=== PATIENT | female | born 1955 | race American Indian/Alaskan Native ===

== ENCOUNTER 2019-04-16 23:01 | Inpatient (IN) | payer MEDICARE ==
[2019-04-16] MEDS ORDERED: ASPIRIN 325 MG TAB PO ONE (23:40)
--- NOTE | 2019-04-17 00:35 | Emergency Department Report ---
ED Chest Pain HPI - General Chief Complaint: Chest Pain Stated Complaint: HEADACHE, CHEST PAIN Time Seen by Provider: 04/16/19 23:17 Source: patient Mode of arrival: Ambulatory Limitations: No Limitations - History of Present Illness Initial Comments: 63-year-old female with a past medical history of hypertension, diabetes, end- stage renal disease on dialysis Friday, Friday, and Friday, and a "slight heart attack" in November 2018 presents to the hospital complaints of headache and chest pain that started towards the end of her dialysis today. Patient states she initially had a headache, requested Tylenol, by the time she was provided Tylenol the pain had moved to her mid chest. She described as a dull pain that is intermittent and lasted for approximately 1 minute at a time. Positive associated shortness of breath and pain with increased inspiration. She denies nausea, vomiting, or diaphoresis. Patient registered here earlier under and however her chart was closed due to "no response." Patient states she never left the department and was the registered under a different medical record number when she inquired about her wait. Patient reports she was admitted at [facility] in November 2018 and diagnosed with a slight heart attack but denies receiving cardiac cath, angioplasty, or stent. She has also not been prescribed aspirin, Plavix, or other anticoagulants. She denies history of PE/DVT, recent travel, calf tenderness, or unilateral leg edema. She follows with [facility] as an outpatient. - Related Data Allergies Allergy/AdvReac Type Severity Reaction Status Date / Time No Known Allergies Allergy Verified 03/09/19 10:11 Heart Score - HEART Score History: Slightly suspicious EKG: Non-specific Age: 45-65 Risk factors: > 3 risk factors or hx of atherosclerotic disease Troponin: 1-3x normal limit HEART Score: 5 ED Review of Systems ROS: Stated complaint: HEADACHE, CHEST PAIN Other details as noted in HPI Comment: All other systems reviewed and negative ED Past Medical Hx - Past Medical History Previous Medical History?: Yes Hx Hypertension: Yes Hx Heart Attack/AMI: Yes ([SLIGHT WI] 2018) Hx Diabetes: Yes (DIET CONTROLLED) Hx Tuberculosis: No Hx HIV: No - Surgical History Past Surgical History?: Yes Additional Surgical History: C-Sec X 3 - Social History Smoking Status: Former Smoker Substance Use Type: None ED Physical Exam - General Limitations: No Limitations - Other Other exam information: General: No limitations, patient is alert in no acute distress Head exam: Atraumatic, normocephalic Eyes exam: Normal appearance, pupils equal reactive to light, extraocular movements intact ENT: Moist mucous membrane, normal oropharynx Neck exam: Normal inspection, full range of motion, no meningismus nontender Respiratory exam: Clear to auscultation bilateral, no wheezes, rales, crackles, external nontender, tenderness to left sided chest wall. Right chest wall dialysis access Cardiovascular: Normal rate and rhythm Abdomen: Soft, nondistended, and nontender, with normal bowel sounds, no rebound, or guarding Extremity: Full range of motion normal inspection no deformity, no calf tenderness or edema Back: Normal Inspection, full range of motion, no tenderness Neurologic: Alert, oriented x3, cranial nerves intact, no motor or sensory deficit Psychiatric: normal affect, normal mood Skin: Warm, dry, intact ED Course Vital Signs 04/16/19 04/16/19 04/16/19 23:08 23:25 23:45 Temperature 98.4 F 98.3 F Pulse Rate 75 75 74 Respiratory 16 12 12 Rate Blood Pressure 189/72 169/91 Blood Pressure 219/93 [Left] O2 Sat by Pulse 99 99 99 Oximetry 04/16/19 04/17/19 04/17/19 23:55 00:57 01:30 Temperature Pulse Rate 75 74 70 Respiratory 14 12 16 Rate Blood Pressure 169/91 183/83 Blood Pressure 188/83 [Left] O2 Sat by Pulse 98 99 94 Oximetry 04/17/19 04/17/19 02:01 02:31 Temperature Pulse Rate 72 77 Respiratory 16 14 Rate Blood Pressure 175/65 183/51 Blood Pressure [Left] O2 Sat by Pulse Oximetry FROILAN score - Froilan Score Age > 65: (0) No Aspirin use within the Past 7 Days: (0) No 3 or more CAD Risk Factors: (1) Yes 2 or more Angina events in past 24 hrs: (1) Yes Known CAD with more than 50% Stenosis: (0) No Elevated Cardiac Markers: (0) No ST Deviation Greater than 0.5mm: (0) No FROILAN Score: 2 ED Medical Decision Making - Lab Data Lab Results 04/17/19 Range/Units 00:05 Troponin T 0.158 H* (0.00-0.029) ng/mL Triglycerides 72 (2-149) mg/dL Cholesterol 213 H (50-199) mg/dL LDL Cholesterol Direct 154 H (50-130) mg/dL HDL Cholesterol 54 (40-59) mg/dL Cholesterol/HDL Ratio 3.94 % - EKG Data -: EKG Interpreted by Me EKG shows normal: sinus rhythm, ST-T waves (lateral and inferior T-wave inversions) Rate: normal - EKG Data 04/17/19 repeat ekg in ed no acute changes - Radiology Data cxr: no acute findings on cxr earlier today - Medical Decision Making She has intermittent sternal chest pain. Troponin elevated secondary to renal insufficiency and unchanged upon repeat. EKG shows T-wave inversions with all the previous record for comparison. Patient sees [facility] as outpatient. Will be admitted for further workup pt tx with asa - Differential Diagnosis mi, pe, unstable angina, atypical cp Critical Care Time: No Critical care attestation.: If time is entered above; I have spent that time in minutes in the direct care of this critically ill patient, excluding procedure time. ED Disposition Clinical Impression: Chest pain, ESRD on dialysis Disposition: OP ADMIT IP TO THIS HOSP Is pt being admited?: Yes Does the pt Need Aspirin: Yes Condition: Stable Time of Disposition: 01:53
[2019-04-17 01:21] LABS: Chol/HDL Ratio 3.94 %
--- NOTE | 2019-04-17 02:08 | History and Physical Report ---
History of Present Illness Date of examination: 04/17/19 Date of admission: 04/17/19 Chief complaint: Chest pain History of present illness: Patient is 63-year-old female with a past medical history of hypertension, DMII, ESRD(MWF dialysis), who presents to ER with complaints of headache and chest pain. Patient states that she had just recently finished dialysis, when she had a sudden, sharp left chest pain that radiates to left shoulder and back of head. Patient states she usually seeks care at [facility], and was recently there February 2019 seen and admitted for a heart attack. She was transported to ER via EMS. She denies nausea, vomiting, or diaphoresis. Past History Past Medical History: other (Listed in HPI) Past Surgical History: Social history: smoking Family history: hypertension Medications and Allergies Allergies Allergy/AdvReac Type Severity Reaction Status Date / Time ampicillin Allergy Shortness Verified 04/17/19 05:46 of Breath codeine AdvReac Shortness Verified 04/17/19 05:46 of Breath Review of Systems All systems: negative Cardiovascular: chest pain Neurological: headaches Exam - Physical Exam Narrative exam: General appearance: Present: no acute distress - EENT Eyes: Present: PERRL ENT: hearing intact, clear oral mucosa - Neck Neck: Present: supple, normal ROM - Respiratory Respiratory effort: normal Respiratory: bilateral: CTA - Cardiovascular Heart Sounds: Present: S1 & S2. Absent: rub, click - Extremities Extremities: pulses symmetrical, No edema Peripheral Pulses: within normal limits - Abdominal General gastrointestinal: Present: soft, non-tender, non-distended, normal bowel sounds Female genitourinary: Present: normal - Integumentary Integumentary: Present: clear, warm, dry - Musculoskeletal Musculoskeletal: gait normal, strength equal bilaterally - Psychiatric Psychiatric: appropriate mood/affect, intact judgment & insight - Neurologic Neurologic: CNII-XII intact, moves all extremities - Constitutional Vitals: Temp Pulse Resp BP Pulse Ox 98.3 F 74 12 188/83 99 04/16/19 23:25 04/17/19 00:57 04/17/19 00:57 04/17/19 00:57 04/17/19 00:57 Results - Labs Labs: Laboratory Last Values Troponin T 0.158 ng/mL (0.00-0.029) H* 04/17/19 00:05 Triglycerides 72 mg/dL (2-149) 04/17/19 00:05 Cholesterol 213 mg/dL (50-199) H 04/17/19 00:05 LDL Cholesterol Direct 154 mg/dL (50-130) H 04/17/19 00:05 HDL Cholesterol 54 mg/dL (40-59) 04/17/19 00:05 Cholesterol/HDL Ratio 3.94 % 04/17/19 00:05 - Imaging and Cardiology EKG: report reviewed (sinus rhythm, ST-T waves (lateral and inferior T-wave inversions)) Chest x-ray: report reviewed (no acute finding) Assessment and Plan Assessment and plan: The patient has been seen in conjunction with Dr. Silverio who agrees with the assessment and plan of care. Atypical Chest Pain -Continuous telemetry monitoring -Continue supportive care -Pain mgmt -Troponin elevated x1, will continue to trend -Cardiology consulted End-stage renal disease; -on hemodialysis MWF -Received HD yesterday -Monitor labs HTN -Monitor BP -Resume meds once reconciled -IV hydralazine prn Hx HLD -On statin -Lipid panel pending DVT PPX -SCDs bilateral -Heparin sub-q VTE prophylaxis?: Chemical
[2019-04-17] MEDS ORDERED: MORPHINE 2 MG/1 ML INJ IV PRN (02:10)
[2019-04-17] MEDS ORDERED: ACETAMINOPHEN 325 MG TAB PO PRN (02:10)
[2019-04-17] MEDS ORDERED: ONDANSETRON 4 MG/2 ML INJ IV PRN (02:10)
[2019-04-17] MEDS ORDERED: hydrALAZINE 20 MG/1 ML INJ IV PRN (02:18)
[2019-04-17] MEDS ORDERED: D5W/0.9% NACL 1,000 ML IV SCH (10:00)
[2019-04-17] MEDS ORDERED: ASPIRIN 325 MG TAB PO SCH (10:00)
--- NOTE | 2019-04-17 10:03 | Progress Note ---
Assessment and Plan Assessment and plan: Chest pain: Headache: Resolved Hospitalist Physical - Constitutional Vitals: Temp Pulse Resp BP Pulse Ox 98.5 F 79 18 179/76 97 04/17/19 05:48 04/17/19 06:05 04/17/19 06:56 04/17/19 05:48 04/17/19 05:48 Results - Labs Labs: Laboratory Last Values POC Glucose 76 (70-105) 04/17/19 09:19 Troponin T 0.145 ng/mL (0.00-0.029) H* 04/17/19 05:19 Triglycerides 72 mg/dL (2-149) 04/17/19 00:05 Cholesterol 213 mg/dL (50-199) H 04/17/19 00:05 LDL Cholesterol Direct 154 mg/dL (50-130) H 04/17/19 00:05 HDL Cholesterol 54 mg/dL (40-59) 04/17/19 00:05 Cholesterol/HDL Ratio 3.94 % 04/17/19 00:05 Active Medications - Current Medications Current Medications: Generic Name Dose Route Start Last Admin Trade Name Freq PRN Reason Stop Dose Admin Acetaminophen 650 mg 04/17/19 02:10 Tylenol PO Q4H PRN Pain MILD(1-3)/Fever >100.5/VALENTINO Aspirin 325 mg 04/17/19 10:00 Ecotrin PO QDAY [facility] Folic Acid 1 mg 04/17/19 10:00 Folvite PO QDAY [facility] Heparin Sodium (Porcine) 5,000 unit 04/17/19 10:00 Heparin SUB-Q Q12HR [facility] Hydralazine HCl 10 mg 04/17/19 02:18 Apresoline IV Q4H PRN Hypertension Hydralazine HCl 50 mg 04/17/19 14:00 Apresoline PO Q8HR JANE Dextrose/Sodium Chloride 1,000 mls @ 42 mls/hr 04/17/19 10:00 D5ns IV DIRECT [facility] Isosorbide Mononitrate 60 mg 04/17/19 10:00 Imdur PO QDAY [facility] Metoprolol Tartrate 50 mg 04/17/19 10:00 Metoprolol PO BID JANE Morphine Sulfate 2 mg 04/17/19 02:10 Morphine IV Q4H PRN Pain, Moderate (4-6) Ondansetron HCl 4 mg 04/17/19 02:10 Zofran IV Q8H PRN Nausea And Vomiting Sodium Chloride 10 ml 04/17/19 10:00 Sodium Chloride Flush Syringe 10 Ml IV BID JANE Sodium Chloride 10 ml 04/17/19 02:10 Sodium Chloride Flush Syringe 10 Ml IV PRN PRN LINE FLUSH
[2019-04-17] MEDS: METOPROLOL TARTRATE 50 MG TAB PO SCH ×2 (10:25→21:08)
[2019-04-17] MEDS: FOLIC ACID 1 MG TAB PO SCH (10:25)
[2019-04-17] MEDS: ASPIRIN EC 325 MG TAB PO SCH (10:25)
[2019-04-17] MEDS: HEPARIN 5,000 UNIT/1 ML VIAL SUB-Q SCH ×2 (10:25→21:08)
[2019-04-17 10:57] LABS: Hematocrit 37.8 % (30.3-42.9); Hemoglobin 12.5 gm/dl (10.1-14.3); Mean Corpuscular HGB Conc 33 % (30-34); Mean Corpuscular Volume 85 fl (79-97); Platelet Count 350 K/mm3 (140-440); Red Blood Count 4.43 M/mm3 (3.65-5.03); Red Cell Distribution Width 18.2 % (13.2-15.2)
[2019-04-17 11:02] LABS: Calcium 8.7 mg/dL (8.4-10.2)
[2019-04-17 11:44] LABS: Basophils % (Manual) 0 % (0.0-1.8); Eosinophils % (Manual) 0 % (0.0-4.3); Total Cells Counted 100
[2019-04-17 11:45] LABS: Target Cells Few
[2019-04-17 11:46] LABS: Hypochromasia Few; Platelet Estimate Consistent w Auto
--- NOTE | 2019-04-17 13:20 | Consultation ---
History of Present Illness Consult date: 04/17/19 Requesting physician: ALONDRA SEGAL Consult reason: chest pain History of present illness: 63-year-old female with history of end-stage renal disease on hemodialysis hypertension multiple admissions at [place] for sepsis and chest pain. He presents back with left-sided chest pressure radiating with and without exertio n. Had abnormal troponin. Had a negative stress test and October 2018. Patient is not very compliant with medications as per her primary care note. Denies any fever or chill or syncope. Past History Past Medical History: ESRD, hypertension, hyperlipidemia, other (Listed in HPI) Past Surgical History: Social history: smoking Family history: hypertension Medications and Allergies Allergies Allergy/AdvReac Type Severity Reaction Status Date / Time ampicillin Allergy Shortness Verified 04/17/19 05:46 of Breath codeine AdvReac Shortness Verified 04/17/19 05:46 of Breath Active Meds: Active Medications Acetaminophen (Tylenol) 650 mg PO Q4H PRN PRN Reason: Pain MILD(1-3)/Fever >100.5/VALENTINO Aspirin (Ecotrin) 325 mg PO QDAY [facility] Last Admin: 04/17/19 10:25 Dose: 325 mg Documented by: Folic Acid (Folvite) 1 mg PO QDAY [facility] Last Admin: 04/17/19 10:25 Dose: 1 mg Documented by: Heparin Sodium (Porcine) (Heparin) 5,000 unit SUB-Q Q12HR [facility] Last Admin: 04/17/19 10:25 Dose: 5,000 unit Documented by: Hydralazine HCl (Apresoline) 10 mg IV Q4H PRN PRN Reason: Hypertension Hydralazine HCl (Apresoline) 50 mg PO Q8HR [facility] Dextrose/Sodium Chloride (D5ns) 1,000 mls @ 42 mls/hr IV DIRECT [facility] Last Admin: 04/17/19 10:24 Dose: 42 mls/hr Documented by: Isosorbide Mononitrate (Imdur) 60 mg PO QDAY [facility] Last Admin: 04/17/19 10:25 Dose: 60 mg Documented by: Metoprolol Tartrate (Metoprolol) 50 mg PO BID [facility] Last Admin: 04/17/19 10:25 Dose: 50 mg Documented by: Morphine Sulfate (Morphine) 2 mg IV Q4H PRN PRN Reason: Pain, Moderate (4-6) Ondansetron HCl (Zofran) 4 mg IV Q8H PRN PRN Reason: Nausea And Vomiting Sodium Chloride (Sodium Chloride Flush Syringe 10 Ml) 10 ml IV BID JANE Last Admin: 04/17/19 10:25 Dose: 10 ml Documented by: Sodium Chloride (Sodium Chloride Flush Syringe 10 Ml) 10 ml IV PRN PRN PRN Reason: LINE FLUSH Review of Systems All systems: negative (as per the HPI) Physical Examination Vital Signs Temp Pulse Resp BP Pulse Ox 98.4 F 75 16 189/72 99 04/16/19 23:08 04/16/19 23:08 04/16/19 23:08 04/16/19 23:08 04/16/19 23:08 General appearance: no acute distress, well-nourished HEENT: Positive: PERRL, Mucus Membranes Moist Neck: Positive: neck supple, trachea midline Cardiac: Positive: Reg Rate and Rhythm, S1/S2. Negative: Audible Murmur Lungs: Positive: clear to auscultation, Normal Breath Sounds Neuro: Positive: Grossly Intact Abdomen: Positive: Soft, Active Bowel Sounds. Negative: Tender, Distended Female genitourinary: deferred Skin: Positive: Clear Incision: Cardiac Cath Site Musculoskeletal: No Pain, Normal Range of Motion Extremities: Present: normal. Absent: edema Results 04/17/19 10:26 04/17/19 10:26 Lipids 04/17/19 Range/Units 00:05 Triglycerides 72 (2-149) mg/dL Cholesterol 213 H (50-199) mg/dL HDL Cholesterol 54 (40-59) mg/dL Cholesterol/HDL Ratio 3.94 % CBC 04/17/19 Range/Units 10:26 WBC 10.8 (4.5-11.0) K/mm3 RBC 4.43 (3.65-5.03) M/mm3 Hgb 12.5 (10.1-14.3) gm/dl Hct 37.8 (30.3-42.9) % Plt Count 350 (140-440) K/mm3 Comprehensive Metabolic Panel 04/17/19 Range/Units 10:26 Sodium 140 (137-145) mmol/L Potassium 4.1 (3.6-5.0) mmol/L Chloride 95.8 L (98-107) mmol/L Carbon Dioxide 27 (22-30) mmol/L BUN 21 H (7-17) mg/dL Creatinine 3.7 H (0.7-1.2) mg/dL Glucose 87 (65-100) mg/dL Calcium 8.7 (8.4-10.2) mg/dL - Imaging and Cardiology Stress echo: other (10/2018 negative myocardial perfusion no significant ischemia) Echo: report reviewed (01/2019 normal LV function moderate lvh mild mitral regurgitation mild tricuspid regurgitation normal RVSP) EKG interpretations - Telemetry EKG Rhythm: Sinus Rhythm (normal sinus rhythm nonspecific ST-T is) Assessment and Plan Chest pain Non-ST elevation ID type II Hypertensive urgency Diabetes endStage renal disease on hemodialysis Hyperlipidemia Compliance issues Recommend cardiac catheterization for definitive diagnosis in view of recurrent chest pain suspected coronary Disease. Patient needs to blood pressure control will add nitrates and beta blockers
[2019-04-17] MEDS: hydrALAZINE 25 MG TAB PO SCH ×2 (15:20→21:08)
[2019-04-17] MEDS: CALCITRIOL 0.25 MCG CAP PO SCH (15:20)
--- NOTE | 2019-04-17 16:12 | Event Note ---
Date: 04/17/19 Patient seen and examined, resting comfortable. Will restart home meds, Discussed case with cardiology, nurse and patient. Continue current therapy
[2019-04-18] MEDS: hydrALAZINE 25 MG TAB PO SCH ×3 (05:10→22:42)
[2019-04-18 07:28] LABS: Basophils # (Auto) 0.1 K/mm3 (0.0-0.1); Basophils % (Auto) 1.1 % (0.0-1.8); Eosinophils # (Auto) 0.1 K/mm3 (0.0-0.4); Eosinophils % (Auto) 1.2 % (0.0-4.3); Hematocrit 34.3 % (30.3-42.9); Hemoglobin 11.4 gm/dl (10.1-14.3); Lymphocytes # (Auto) 2.2 K/mm3 (1.2-5.4); Lymphocytes % (Auto) 22.1 % (13.4-35.0); Mean Corpuscular HGB Conc 33 % (30-34); Mean Corpuscular Volume 86 fl (79-97); Monocytes # (Auto) 0.9 K/mm3 (0.0-0.8); Monocytes % (Auto) 8.6 % (0.0-7.3); Platelet Count 324 K/mm3 (140-440); Red Blood Count 3.97 M/mm3 (3.65-5.03); Red Cell Distribution Width 18.2 % (13.2-15.2)
[2019-04-18 07:47] LABS: Calcium 8.3 mg/dL (8.4-10.2)
--- NOTE | 2019-04-18 09:46 | Progress Note ---
Assessment and Plan Assessment and plan: Patient is 63-year-old female with a past medical history of hypertension, DMII, ESRD(MWF dialysis), who presents to ER with complaints of headache and chest pain. Patient states that she had just recently finished dialysis, when she had a sudden, sharp left chest pain that radiates to left shoulder and back of head. Patient states she usually seeks care at [facility], and was recently there February 2019 seen and admitted for a heart attack. She was transported to ER via EMS. She denies nausea, vomiting, or diaphoresis. Nstemi Type 2 Hypertensive Urgency Atypical chest pain DM ESRD HLD Plan Continue supportive care BP still elevated, but has not received morning meds. Will also resume home dose Nifidepine 60mg daily and recheck BP may need further adjustment 30 mins of counselling provided Discussed plan for cardiac catheterization for definitive diagnosis in view of recurrent chest pain suspected coronary Disease in am considering multiple work up in the past. Nephrology input noted DVT/GI prophy History Interval history: Patient seen and examined, stable, no acute distress Hospitalist Physical - Physical exam Narrative exam: VITAL SIGNS: Reviewed. GENERAL: The patient appears normally developed, Vital signs as documented. HEAD: No signs of head trauma. EYES: Pupils are equal. Extraocular motions intact. EARS: Hearing grossly intact. MOUTH: Oropharynx is normal. NECK: No adenopathy, no JVD. CHEST: Chest with clear breath sounds bilaterally. No wheezes, rales, or rhonchi. CARDIAC: Regular rate and rhythm. S1 and S2, without murmurs, gallops, or rubs. VASCULAR: Right arm dialysis access. No Edema. Peripheral pulses normal and equal in all extremities. ABDOMEN: Soft, non tender and non distended. No rebound or guarding, and no masses palpated. Bowel Sounds normal. MUSCULOSKELETAL: Good range of motion of all major joints. Extremities without clubbing, cyanosis or edema. NEUROLOGIC EXAM: Alert and oriented x 3 No focal sensory or strength deficits. Speech normal. Follows commands. PSYCHIATRIC: Mood normal. SKIN: detial exam as documented in skin assessment - Constitutional Vitals: Temp Pulse Resp BP Pulse Ox 99.1 F 66 18 174/73 93 04/18/19 09:09 04/18/19 09:09 04/18/19 09:09 04/18/19 09:09 04/18/19 09:09 General appearance: Present: no acute distress, well-nourished Results - Labs CBC & Chem 7: 04/18/19 13:14 04/18/19 13:14 Labs: Laboratory Last Values WBC 9.9 K/mm3 (4.5-11.0) 04/18/19 07:06 RBC 3.97 M/mm3 (3.65-5.03) 04/18/19 07:06 Hgb 11.4 gm/dl (10.1-14.3) 04/18/19 07:06 Hct 34.3 % (30.3-42.9) 04/18/19 07:06 MCV 86 fl (79-97) 04/18/19 07:06 MCH 29 pg (28-32) 04/18/19 07:06 MCHC 33 % (30-34) 04/18/19 07:06 RDW 18.2 % (13.2-15.2) H 04/18/19 07:06 Plt Count 324 K/mm3 (140-440) 04/18/19 07:06 Lymph % (Auto) 22.1 % (13.4-35.0) 04/18/19 07:06 Lipscomb % (Auto) 8.6 % (0.0-7.3) H 04/18/19 07:06 Eos % (Auto) 1.2 % (0.0-4.3) 04/18/19 07:06 Baso % (Auto) 1.1 % (0.0-1.8) 04/18/19 07:06 Lymph # 2.2 K/mm3 (1.2-5.4) 04/18/19 07:06 [place]comb # 0.9 K/mm3 (0.0-0.8) H 04/18/19 07:06 Eos # 0.1 K/mm3 (0.0-0.4) 04/18/19 07:06 Baso # 0.1 K/mm3 (0.0-0.1) 04/18/19 07:06 Add Manual Diff Complete 04/17/19 10:26 Total Counted 100 04/17/19 10:26 Seg Neutrophils % 67.0 % (40.0-70.0) 04/18/19 07:06 Seg Neuts % (Manual) 82.0 % (40.0-70.0) H 04/17/19 10:26 Band Neutrophils % 0 % 04/17/19 10:26 Lymphocytes % (Manual) 11.0 % (13.4-35.0) L 04/17/19 10:26 Reactive Lymphs % (Man) 0 % 04/17/19 10:26 Monocytes % (Manual) 6.0 % (0.0-7.3) 04/17/19 10:26 Eosinophils % (Manual) 0 % (0.0-4.3) 04/17/19 10:26 Basophils % (Manual) 0 % (0.0-1.8) 04/17/19 10: Metamyelocytes % 1.0 % 04/17/19 10: Myelocytes % 0 % 04/17/19 10: Promyelocytes % 0 % 04/17/19 10: Blast Cells % 0 % 04/17/19 10: Nucleated RBC % Not Reportable 04/17/19 10:26 Seg Neutrophils # 6.7 K/mm3 (1.8-7.7) 04/18/19 07:06 Seg Neutrophils # Man 8.9 K/mm3 (1.8-7.7) H 04/17/19 10:26 Band Neutrophils # 0.0 K/mm3 04/17/19 10: Lymphocytes # (Manual) 1.2 K/mm3 (1.2-5.4) 04/17/19 10:26 Abs React Lymphs (Man) 0.0 K/mm3 04/17/19 10:26 Monocytes # (Manual) 0.6 K/mm3 (0.0-0.8) 04/17/19 10:26 Eosinophils # (Manual) 0.0 K/mm3 (0.0-0.4) 04/17/19 10:26 Basophils # (Manual) 0.0 K/mm3 (0.0-0.1) 04/17/19 10:26 Metamyelocytes # 0.1 K/mm3 04/17/19 10:26 Myelocytes # 0.0 K/mm3 04/17/19 10:26 Promyelocytes # 0.0 K/mm3 04/17/19 10:26 Blast Cells # 0.0 K/mm3 04/17/19 10:26 WBC Morphology Not Reportable 04/17/19 10:26 Hypersegmented Neuts Not Reportable 04/17/19 10:26 Hyposegmented Neuts Not Reportable 04/17/19 10:26 Hypogranular Neuts Not Reportable 04/17/19 10:26 Smudge Cells Not Reportable 04/17/19 10:26 Toxic Granulation Not Reportable 04/17/19 10:26 Toxic Vacuolation Not Reportable 04/17/19 10:26 Dohle Bodies Not Reportable 04/17/19 10:26 Pelger-Huet Anomaly Not Reportable 04/17/19 10:26 Leonora Rods Not Reportable 04/17/19 10:26 Platelet Estimate Consistent w auto 04/17/19 10:26 Clumped Platelets Not Reportable 04/17/19 10:26 Plt Clumps, EDTA Not Reportable 04/17/19 10:26 Large Platelets Not Reportable 04/17/19 10:26 Giant Platelets Not Reportable 04/17/19 10:26 Platelet Satelliting Not Reportable 04/17/19 10:26 Plt Morphology Comment Not Reportable 04/17/19 10:26 RBC Morphology Not Reportable 04/17/19 10:26 Dimorphic RBCs Not Reportable 04/17/19 10:26 Polychromasia Not Reportable 04/17/19 10:26 Hypochromasia Few 04/17/19 10:26 Poikilocytosis Not Reportable 04/17/19 10:26 Anisocytosis Not Reportable 04/17/19 10:26 Microcytosis Not Reportable 04/17/19 10:26 Macrocytosis Not Reportable 04/17/19 10:26 Spherocytes Not Reportable 04/17/19 10:26 Pappenheimer Bodies Not Reportable 04/17/19 10:26 Sickle Cells Not Reportable 04/17/19 10:26 Target Cells Few 04/17/19 10:26 Tear Drop Cells Not Reportable 04/17/19 10:26 Ovalocytes Not Reportable 04/17/19 10:26 Helmet Cells Not Reportable 04/17/19 10:26 Kellogg-Texanna Bodies Not Reportable 04/17/19 10:26 Burdine Rings Not Reportable 04/17/19 10:26 Alejandro Cells Not Reportable 04/17/19 10:26 Bite Cells Not Reportable 04/17/19 10:26 Crenated Cell Not Reportable 04/17/19 10:26 Elliptocytes Not Reportable 04/17/19 10:26 Acanthocytes (Spur) Not Reportable 04/17/19 10:26 Rouleaux Not Reportable 04/17/19 10:26 Hemoglobin C Crystals Not Reportable 04/17/19 10:26 Schistocytes Not Reportable 04/17/19 10:26 Malaria parasites Not Reportable 04/17/19 10:26 Chon Bodies Not Reportable 04/17/19 10:26 Hem Pathologist Commnt No 04/17/19 10:26 Sodium 137 mmol/L (137-145) 04/18/19 07:06 Potassium 3.9 mmol/L (3.6-5.0) 04/18/19 07:06 Chloride 96.1 mmol/L (98-107) L 04/18/19 07:06 Carbon Dioxide 23 mmol/L (22-30) 04/18/19 07:06 Anion Gap 22 mmol/L 04/18/19 07:06 BUN 30 mg/dL (7-17) H 04/18/19 07:06 Creatinine 4.9 mg/dL (0.7-1.2) H 04/18/19 07:06 Estimated GFR 9 ml/min 04/18/19 07:06 BUN/Creatinine Ratio 6 % 04/18/19 07:06 Glucose 82 mg/dL (65-100) 04/18/19 07:06 POC Glucose 72 (70-105) 04/18/19 08:02 Calcium 8.3 mg/dL (8.4-10.2) L 04/18/19 07:06 Troponin T 0.139 ng/mL (0.00-0.029) H* 04/17/19 11:05 Triglycerides 72 mg/dL (2-149) 04/17/19 00:05 Cholesterol 213 mg/dL (50-199) H 04/17/19 00:05 LDL Cholesterol Direct 154 mg/dL (50-130) H 04/17/19 00:05 HDL Cholesterol 54 mg/dL (40-59) 04/17/19 00:05 Cholesterol/HDL Ratio 3.94 % 04/17/19 00:05 Active Medications - Current Medications Current Medications: Generic Name Dose Route Start Last Admin Trade Name Freq PRN Reason Stop Dose Admin Acetaminophen 650 mg 04/17/19 02:10 Tylenol PO Q4H PRN Pain MILD(1-3)/Fever >100.5/VALENTINO Aspirin 325 mg 04/17/19 10:00 04/17/19 10:25 Ecotrin PO 325 mg QDAY JANE Administration Calcitriol 0.25 mcg 04/17/19 14:00 04/17/19 15:20 Rocaltrol PO 0.25 mcg QDAY JANE Administration Folic Acid 1 mg 04/17/19 10:00 04/17/19 10:25 Folvite PO 1 mg QDAY JANE Administration Heparin Sodium (Porcine) 5,000 unit 04/17/19 10:00 04/17/19 21:08 Heparin SUB-Q 5,000 unit Q12HR JANE Administration Hydralazine HCl 10 mg 04/17/19 02:18 Apresoline IV Q4H PRN Hypertension Hydralazine HCl 50 mg 04/17/19 14:00 04/18/19 05:10 Apresoline PO 50 mg Q8HR JANE Administration Isosorbide Mononitrate 60 mg 04/17/19 10:00 04/17/19 10:25 Imdur PO 60 mg QDAY JANE Administration Metoprolol Tartrate 50 mg 04/17/19 10:00 04/17/19 21:08 Metoprolol PO 50 mg BID JANE Administration Morphine Sulfate 2 mg 04/17/19 02:10 Morphine IV Q4H PRN Pain, Moderate (4-6) Ondansetron HCl 4 mg 04/17/19 02:10 Zofran IV Q8H PRN Nausea And Vomiting Sodium Chloride 10 ml 04/17/19 10:00 04/17/19 21:09 Sodium Chloride Flush Syringe 10 Ml IV 10 ml BID JANE Administration Sodium Chloride 10 ml 04/17/19 02:10 Sodium Chloride Flush Syringe 10 Ml IV PRN PRN LINE FLUSH
[2019-04-18] MEDS ORDERED: NON-FORMULARY EACH (Nifedipine [Nifedipine Er] 60 MG) PO SCH (10:00)
[2019-04-18] MEDS ORDERED: FOLIC ACID 1 MG TAB PO SCH (10:00)
[2019-04-18] MEDS: METOPROLOL TARTRATE 50 MG TAB PO SCH ×2 (10:23→22:41)
[2019-04-18] MEDS: ASPIRIN EC 325 MG TAB PO SCH (10:23)
[2019-04-18] MEDS: FOLIC ACID 1 MG TAB PO SCH (10:23)
[2019-04-18] MEDS: NIFEdipine XL 60 MG TAB PO SCH (10:24)
[2019-04-18] MEDS: CALCITRIOL 0.25 MCG CAP PO SCH (10:24)
[2019-04-18] MEDS: HEPARIN 5,000 UNIT/1 ML VIAL SUB-Q SCH ×2 (10:24→22:42)
--- NOTE | 2019-04-18 11:04 | Progress Note ---
Assessment and Plan Chest pain Non-ST elevation NE type II Hypertensive urgency Diabetes endStage renal disease on hemodialysis Hyperlipidemia Compliance issues Recommend cardiac catheterization for definitive diagnosis in view of recurrent chest pain suspected coronary Disease. Patient needs to blood pressure control will add nitrates and beta blockers Subjective Date of service: 04/18/19 Principal diagnosis: cp Interval history: cp is better Objective Vital Signs Temp Pulse Resp BP Pulse Ox 04/18/19 10:23 66 174/73 04/18/19 09:09 99.1 F 66 18 174/73 93 04/18/19 08:35 64 04/18/19 06:00 83 04/18/19 04:13 98.8 F 68 16 177/68 96 04/17/19 23:06 99.7 F H 69 18 175/72 96 04/17/19 22:00 77 18 04/17/19 21:08 90 04/17/19 19:18 99.8 F H 79 15 176/75 96 04/17/19 17:29 98.2 F 84 18 195/86 92 - Physical Examination General: No Apparent Distress HEENT: Positive: PERRL, Mucus Membranes Moist Neck: Positive: neck supple, trachea midline Cardiac: Positive: Reg Rate and Rhythm Lungs: Positive: clear to auscultation Neuro: Positive: Grossly Intact Abdomen: Positive: Soft, Active Bowel Sounds. Negative: Tender, Distended Skin: Positive: Clear Incision: Cardiac Cath Site Musculoskeletal: No Pain, Normal Range of Motion Extremities: Present: normal. Absent: edema - Labs and Meds CBC 04/17/19 04/18/19 Range/Units 10:26 07:06 WBC 10.8 9.9 (4.5-11.0) K/mm3 RBC 4.43 3.97 (3.65-5.03) M/mm3 Hgb 12.5 11.4 (10.1-14.3) gm/dl Hct 37.8 34.3 (30.3-42.9) % Plt Count 350 324 (140-440) K/mm3 Lymph # 2.2 (1.2-5.4) K/mm3 [place] # 0.9 H (0.0-0.8) K/mm3 Eos # 0.1 (0.0-0.4) K/mm3 Baso # 0.1 (0.0-0.1) K/mm3 Comprehensive Metabolic Panel 04/17/19 04/18/19 Range/Units 10:26 07:06 Sodium 140 137 (137-145) mmol/L Potassium 4.1 3.9 (3.6-5.0) mmol/L Chloride 95.8 L 96.1 L (98-107) mmol/L Carbon Dioxide 27 23 (22-30) mmol/L BUN 21 H 30 H (7-17) mg/dL Creatinine 3.7 H 4.9 H (0.7-1.2) mg/dL Glucose 87 82 (65-100) mg/dL Calcium 8.7 8.3 L (8.4-10.2) mg/dL - Imaging and Cardiology EKG: report reviewed (sinus rhythm, ST-T waves (lateral and inferior T-wave inversions)) Stress echo: other (10/2018 negative myocardial perfusion no significant ischemia) Echo: report reviewed (01/2019 normal LV function moderate lvh mild mitral regurgitation mild tricuspid regurgitation normal RVSP) - EKG Sinus rhythms and dysrhythmias: sinus rhythm
[2019-04-18] MEDS ORDERED: SODIUM CHLORIDE 0.9% 500 ML 500 ML IV SCH (12:00)
[2019-04-18 14:21] LABS: Basophils # (Auto) 0.1 K/mm3 (0.0-0.1); Basophils % (Auto) 0.7 % (0.0-1.8); Eosinophils # (Auto) 0.2 K/mm3 (0.0-0.4); Eosinophils % (Auto) 1.9 % (0.0-4.3); Hematocrit 35.9 % (30.3-42.9); Hemoglobin 11.7 gm/dl (10.1-14.3); Lymphocytes # (Auto) 2.1 K/mm3 (1.2-5.4); Lymphocytes % (Auto) 22.8 % (13.4-35.0); Mean Corpuscular HGB Conc 33 % (30-34); Mean Corpuscular Volume 86 fl (79-97); Monocytes # (Auto) 0.8 K/mm3 (0.0-0.8); Monocytes % (Auto) 8.8 % (0.0-7.3); Platelet Count 355 K/mm3 (140-440); Red Blood Count 4.18 M/mm3 (3.65-5.03); Red Cell Distribution Width 18.3 % (13.2-15.2)
[2019-04-18 14:33] LABS: INR 1.04 (0.87-1.13)
[2019-04-18 14:46] LABS: Calcium 8.5 mg/dL (8.4-10.2)
[2019-04-19] MEDS: hydrALAZINE 25 MG TAB PO SCH ×2 (05:27→15:43)
[2019-04-19 07:06] LABS: Hematocrit 34.7 % (30.3-42.9); Hemoglobin 11.3 gm/dl (10.1-14.3); Mean Corpuscular HGB Conc 33 % (30-34); Mean Corpuscular Volume 86 fl (79-97); Platelet Count 349 K/mm3 (140-440); Red Blood Count 4.02 M/mm3 (3.65-5.03); Red Cell Distribution Width 18.5 % (13.2-15.2)
[2019-04-19 07:18] LABS: INR 1.04 (0.87-1.13)
[2019-04-19 07:21] LABS: Calcium 7.9 mg/dL (8.4-10.2)
[2019-04-19] MEDS ORDERED: MIDAZOLAM 2 MG/2 ML INJ ONE (09:07)
[2019-04-19] MEDS ORDERED: HEPARIN/NS 5000 UNIT/500ML 1,000 ML IR ONE (09:07)
[2019-04-19] MEDS ORDERED: fentaNYL 100 MCG/2 ML INJ ONE (09:08)
[2019-04-19] MEDS: HEPARIN 10,000 UNITS/10 ML VIAL ONE ×2 (09:36→09:42)
[2019-04-19] MEDS: LIDOCAINE (2%) 20 MG/1 ML VIAL 20 ML MDV INFILTRATI ONE ×2 (09:36→09:41)
[2019-04-19] MEDS: VERAPAMIL 5 MG/2 ML INJ ONE ×2 (09:37→09:42)
[2019-04-19] MEDS: NITROGLYCERIN SYRINGE 3 ML ONE ×2 (09:41→09:42)
[2019-04-19] MEDS ORDERED: SODIUM CHLORIDE 0.9% 500 ML 500 ML IV SCH (10:00)
[2019-04-19] MEDS: CALCITRIOL 0.25 MCG CAP PO SCH (11:13)
[2019-04-19] MEDS: METOPROLOL TARTRATE 50 MG TAB PO SCH (11:14)
[2019-04-19] MEDS: ASPIRIN EC 325 MG TAB PO SCH (11:14)
[2019-04-19] MEDS: FOLIC ACID 1 MG TAB PO SCH (11:15)
[2019-04-19] MEDS: HEPARIN 5,000 UNIT/1 ML VIAL SUB-Q SCH (11:15)
[2019-04-19] MEDS: NIFEdipine XL 60 MG TAB PO SCH (11:15)
--- NOTE | 2019-04-19 11:32 | Progress Note ---
Assessment and Plan Chest pain - resolved Non-ST elevation [place] type II Hypertensive urgency Diabetes ESRD on hemodialysis Hyperlipidemia Compliance issues S/p LHC which was normal. Currently stable cardiac status. Pt may discharge home from cardiology standpoint following completion of post cath order set. Recommend follow up in our office with Dr. Delgado within 1-2 weeks of discharge ([phone]). The patient has been seen in conjunction with Dr. Cheo Ware who agrees with the assessment and plan of care. Subjective Date of service: 04/19/19 Principal diagnosis: cp Interval history: pt for LHC. in SR on tele. Objective Last Vital Signs Temp 98 F 04/19/19 10:15 Pulse 68 04/19/19 11:14 Resp 18 04/19/19 10:45 BP 148/65 04/19/19 11:14 Pulse Ox 97 04/19/19 10:45 - Physical Examination General: No Apparent Distress HEENT: Positive: PERRL, Mucus Membranes Moist Neck: Positive: neck supple, trachea midline Cardiac: Positive: Reg Rate and Rhythm, S1/S2 Lungs: Positive: Decreased Breath Sounds Neuro: Positive: Grossly Intact Abdomen: Positive: Soft, Active Bowel Sounds. Negative: Tender, Distended Skin: Positive: Clear Incision: Cardiac Cath Site Musculoskeletal: No Pain, Normal Range of Motion Extremities: Present: normal. Absent: edema - Labs and Meds Coagulation 04/18/19 04/19/19 Range/Units 13:14 06:34 PT 13.7 13.7 (12.2-14.9) Sec. INR 1.04 1.04 (0.87-1.13) CBC 04/18/19 04/19/19 Range/Units 13:14 06:34 WBC 9.3 8.1 (4.5-11.0) K/mm3 RBC 4.18 4.02 (3.65-5.03) M/mm3 Hgb 11.7 11.3 (10.1-14.3) gm/dl Hct 35.9 34.7 (30.3-42.9) % Plt Count 355 349 (140-440) K/mm3 Lymph # 2.1 (1.2-5.4) K/mm3 [place] # 0.8 (0.0-0.8) K/mm3 Eos # 0.2 (0.0-0.4) K/mm3 Baso # 0.1 (0.0-0.1) K/mm3 Comprehensive Metabolic Panel 04/18/19 04/19/19 Range/Units 13:14 06:34 Sodium 137 135 L (137-145) mmol/L Potassium 4.6 4.4 (3.6-5.0) mmol/L Chloride 93.9 L 95.9 L (98-107) mmol/L Carbon Dioxide 23 23 (22-30) mmol/L BUN 34 H 42 H (7-17) mg/dL Creatinine 5.2 H 5.7 H (0.7-1.2) mg/dL Glucose 119 H 98 (65-100) mg/dL Calcium 8.5 7.9 L (8.4-10.2) mg/dL - Imaging and Cardiology EKG: report reviewed (sinus rhythm, ST-T waves (lateral and inferior T-wave inversions)) Stress echo: other (10/2018 negative myocardial perfusion no significant ischemia) Echo: report reviewed (01/2019 normal LV function moderate lvh mild mitral regurgitation mild tricuspid regurgitation normal RVSP) - EKG Sinus rhythms and dysrhythmias: sinus rhythm
--- NOTE | 2019-04-19 11:44 | Discharge Summary ---
Providers - Providers Date of Admission: 04/19/19 10:51 Attending physician: ALONDRA SEGAL MD 04/17/19 Consult to Cardiac Rehabilitation [CONS] Routine Reason For Exam: Phase 1 04/17/19 02:10 Consult to Physician [CONS] Routine Comment: Consulting Provider: HONG PINEDA Physician Instructions: Reason For Exam: chest pain 04/19/19 11:07 Consult to Cardiac Rehabilitation [CONS] Routine Reason For Exam: Cardiac Rehab Evaluation Primary care physician: STORAGE MANAGEMENT ARCHITECT Hospitalization Reason for admission: chest pain Condition: Stable Hospital course: Patient is 63-year-old female with a past medical history of hypertension, DMII, ESRD(MWF dialysis), who presents to ER with complaints of headache and chest pain. Patient states that she had just recently finished dialysis, when she had a sudden, sharp left chest pain that radiates to left shoulder and back of head. Patient states she usually seeks care at [facility], and was recently there February 2019 seen and admitted for a heart attack. She was transported to ER via EMS. She denies nausea, vomiting, or diaphoresis. * Definitive Cardiac cath was negative for acute disease * Patient to follow with Cards out patient * She continue dialysis in house and will be dialyzed prior to discharged due to cardiac cath * BP meds were optimized * Compliance counselling was stressed again and she verbalized understanding Nstemi Type 2 Hypertensive Urgency Atypical chest pain DM ESRD HLD Disposition: TO HOME OR SELFCARE Time spent for discharge: 35 mins Exam - Constitutional Vitals: Temp Pulse Resp BP Pulse Ox 98 F 68 18 148/65 97 04/19/19 10:15 04/19/19 11:14 04/19/19 10:45 04/19/19 11:14 04/19/19 10:45 Plan Activity: advance as tolerated, fall precautions Diet: low fat, renal Special Instructions: record daily weights, record daily BP diary, record blood sugar diary Follow up with: LORA GONZALEZ MD [Primary Care Provider] - 3-5 Days HARMEET HENDERSON MD [Staff Physician] - 7 Days Prescriptions: Folic Acid [Folvite] 1 mg PO QDAY #30 tab Hydralazine HCl 50 mg PO TID #30 tab ISOSORBIDE MONOnitrate [Imdur ER] 60 mg PO DAILY #30 tab Metoprolol [Lopressor TAB] 50 mg PO BID #60 tab NIFEdipine [Nifedipine ER] 60 mg PO DAILY #30 tab calcitrioL [Rocaltrol] 0.25 mcg PO DAILY #30 cap
[2019-04-19] MEDS ORDERED: SODIUM CHLORIDE 0.9% 100 ML IV PRN (12:28)
--- NOTE | 2019-04-19 12:45 | Cardiac Catherization Report ---
CARDIAC CATHETERIZATION REFERRING PHYSICIAN: Hospitalist service and Dr. Delgado. INDICATION FOR PROCEDURE: The patient is a pleasant 63-year-old -[place] female with recurrent chest pain, multiple risk factors, hypertension, referred for left heart catheterization. Risks, benefits, alternatives discussed at length prior to obtaining informed consent. PROCEDURE IN DETAIL: The patient was brought to the catheterization lab in a postoperative state, prepped and draped in sterile fashion. Cong's test in right hand was normal. A 2 mL of 2% lidocaine used to anesthetize the right wrist. A standard 6-Lithuanian hydrophilic sheath used to cannulate the right radial artery via modified Seldinger technique. All exchanges performed to exchange a J-tip guidewire. JL3.5 catheter was used to engage the left main. No dampening or ventricularization. Cineangiography performed in all projections. JR4 catheter used to cross the aortic valve under fluoroscopic guidance. Left ventriculography performed in 30 QURESHI and 30 JAPAN[place] projections via hand injections, catheter flushed. Manual pullback performed with continuous pressure monitoring. Catheter used to engage the right coronary. No dampening or ventricularization. Cineangiography performed in multiple projections. Due to recurrent chest pain, hypertension and unremarkable coronaries, we proceeded with root aortography with a pigtail catheter in the JAPANESE projection with power injector. Next, catheter removed from the body of wire, sheath removed. Manual pressure used to achieve hemostasis. I directly supervised the administration of moderate sedation with fentanyl and Versed from 9:36 a.m. to 10:00 a.m. There is no evidence of immediate complications. HEMODYNAMIC DATA: Aortic pressure is 150/60, LV pressure is 150, LVP of 25 mmHg. Left heart reveals normal systolic performance with estimated ejection fraction of 55-60%. No evidence of aortic stenosis. CORONARY ANATOMY: Left main without significant disease, bifurcates left anterior descending and left circumflex. Left circumflex, moderate sized vessel. Mild scattered luminal irregularities. No significant disease. Left main without significant disease. LAD is a moderate sized vessel, courses anterior intergroove, wraps around the apex, scattered luminal irregularities. No significant disease in the LAD. There is a very small second diagonal with an 80% ostial lesion, medical management. This is 1.5 mm vessel. Right coronary is a moderate sized vessel, courses AV groove, distally bifurcates into posterolateral and posterior descending branches, mild scattered luminal irregularities. No discrete stenoses identified. Root aortography reveals normal contour, no evidence of dissection, penetrating ulcer or insufficiency. Normal great vessel anatomy. CONCLUSIONS: 1. No significant epicardial coronary disease in this right dominant system. Mild small vessel disease is noted including ostial, very small second diagonal, medical management. 2. Normal left ventricular systolic performance, estimated ejection fraction of 55-60%. 3. No evidence of aortic stenosis. 4. Mildly elevated LVEDP. 5. Hypertension. 6. Root aortography without evidence of aortic insufficiency, penetrating aortic ulcer or dissection. 7. Normal sinus rhythm throughout. At this point, recommend aggressive medical management, blood pressure control. RESULTS: The patient may have dialysis later today. Standard radial care. Results of procedure explained to the patient and family. All questions and concerns were addressed. JOB# [id number] GOPI/ARISTIDES
--- NOTE | 2019-04-19 14:12 | Consultation ---
History of Present Illness - Reason for Consult Consult date: 04/19/19 - History of Present Illness Pleasant 63-year-old -[place] female with past medical history of end- stage renal disease in the setting of hypertension, diabetes, who typically sees Dr. Pearl as an outpatient information resources manager, presented to emergency department secondary to acute onset of chest pain. She had a cardiac cath today which was normal per cardiology. She spending discharged after her dialysis. She t ypically dialyzes on a Friday schedule. She has a right IJ permacath for dialysis access. She has no chest pain at this time and is asymptomatic. Past History Past Medical History: ESRD, hypertension, hyperlipidemia, other (Listed in HPI) Past Surgical History: Social history: smoking Family history: hypertension Medications and Allergies Allergies Allergy/AdvReac Type Severity Reaction Status Date / Time ampicillin Allergy Shortness Verified 04/17/19 05:46 of Breath codeine AdvReac Shortness Verified 04/17/19 05:46 of Breath Home Medications Medication Instructions Recorded Confirmed Last Taken Type Pantoprazole [Protonix TAB] 40 mg PO QDAY 04/17/19 04/17/19 Unknown History Folic Acid [Folvite] 1 mg PO QDAY #30 tab 04/19/19 Unknown Rx Hydralazine HCl 50 mg PO TID #30 tab 04/19/19 Unknown Rx ISOSORBIDE MONOnitrate [Imdur ER] 60 mg PO DAILY #30 tab 04/19/19 Unknown Rx Metoprolol [Lopressor TAB] 50 mg PO BID #60 tab 04/19/19 Unknown Rx NIFEdipine [Nifedipine ER] 60 mg PO DAILY #30 tab 04/19/19 Unknown Rx calcitrioL [Rocaltrol] 0.25 mcg PO DAILY #30 cap 04/19/19 Unknown Rx Active Meds: Active Medications Acetaminophen (Tylenol) 650 mg PO Q4H PRN PRN Reason: Pain MILD(1-3)/Fever >100.5/VALENTINO Calcitriol (Rocaltrol) 0.25 mcg PO QDAY [facility] Last Admin: 04/19/19 11:13 Dose: 0.25 mcg Documented by: Folic Acid (Folvite) 1 mg PO QDAY [facility] Last Admin: 04/19/19 11:15 Dose: 1 mg Documented by: Heparin Sodium (Porcine) (Heparin) 5,000 unit SUB-Q Q12HR [facility] Last Admin: 04/19/19 11:15 Dose: 5,000 unit Documented by: Hydralazine HCl (Apresoline) 10 mg IV Q4H PRN PRN Reason: Hypertension Hydralazine HCl (Apresoline) 50 mg PO Q8HR [facility] Last Admin: 04/19/19 05:27 Dose: 50 mg Documented by: Sodium Chloride (Nacl 0.9% 500 Ml) 500 mls @ 50 mls/hr IV DIRECT [facility] Sodium Chloride (Nacl 0.9%) 100 mls @ 999 mls/hr IV RAMONA PRN PRN Reason: Hypotension Isosorbide Mononitrate (Imdur) 60 mg PO QDAY [facility] Last Admin: 04/19/19 11:14 Dose: 60 mg Documented by: Metoprolol Tartrate (Metoprolol) 50 mg PO BID [facility] Last Admin: 04/19/19 11:14 Dose: 50 mg Documented by: Morphine Sulfate (Morphine) 2 mg IV Q4H PRN PRN Reason: Pain, Moderate (4-6) Nifedipine (Procardia Xl) 60 mg PO QDAY [facility] Last Admin: 04/19/19 11:15 Dose: 60 mg Documented by: Ondansetron HCl (Zofran) 4 mg IV Q8H PRN PRN Reason: Nausea And Vomiting Sodium Chloride (Sodium Chloride Flush Syringe 10 Ml) 10 ml IV BID [facility] Last Admin: 04/19/19 11:15 Dose: 10 ml Documented by: Sodium Chloride (Sodium Chloride Flush Syringe 10 Ml) 10 ml IV PRN PRN PRN Reason: LINE FLUSH Review of Systems All systems: negative Constitutional: fatigue, weakness Exam - Vital Signs Vital signs: Vital Signs Temp Pulse Resp BP Pulse Ox 98.4 F 75 16 189/72 99 04/16/19 23:08 04/16/19 23:08 04/16/19 23:08 04/16/19 23:08 04/16/19 23:08 - General Appearance General appearance: well-developed, well-nourished, appears stated age EENT: ATNC, PERRL Neck: Present: neck supple, trachea midline Respiratory: Clear to Ascultation, Normal Exam Heart: regular, S1S2 Gastrointestinal: Present: normal, normoactive bowel sounds Integumentary: no rash, warm and dry Neurologic: no focal deficit, alert and oriented x3 Musculoskeletal: Present: deferred Psychiatric: mood/affect appropriate, cooperative Results - Lab Results 04/19/19 06:34 04/19/19 06:34 Most recent lab results Calcium 7.9 mg/dL (8.4-10.2) L 04/19/19 06:34 Assessment and Plan - Patient Problems (1) End stage renal disease Current Visit: Yes Status: Chronic Plan to address problem: Orders have been placed for dialysis today prior Friday outpatient schedule. From nephrology standpoint, after she is dialyzed she is stable for discharge. (2) Chest pain Current Visit: Yes Status: Acute Plan to address problem: She is status post cardiac catheterization with no acute findings noted, per cardiology notes. She has no chest pain at this time. Further recommendations per cardiology. (3) Hypertensive chronic kidney disease with stage 5 chronic kidney disease or end stage renal disease Current Visit: Yes Status: Chronic Plan to address problem: Will monitor blood pressures under current regimen. (4) Type 2 diabetes mellitus with diabetic chronic kidney disease Current Visit: Yes Status: Chronic Plan to address problem: Diabetes management per primary attending. (5) Secondary hyperparathyroidism (of renal origin) Current Visit: Yes Status: Chronic Plan to address problem: Continue home phosphate binder regimen. She is to follow-up with her information resources manager at the outpatient dialysis unit.
[2019-04-19 14:29] LABS: Hepatitis B Surface Antigen Non-Reactive (Negative); Hepatitis C Virus Antibody Non-Reactive (NonReactive)
[2019-04-19 20:06] VITALS: BP 176/72
== END 2019-04-19 20:10 | disposition home or self-care (01) | DRG 280 ==
LOC: ED 23:01 → 4A 04-17 04:21 → INTOOBSV 04-17 04:21 → OBSVTOIN 04-17 04:21
PROVIDERS: ADMIT Internal Medicine Geriatric Medicine; ATTEND Internal Medicine
PROC: 5A1D70Z Performance of Urinary Filtration, Intermittent, Less than 6 Hours Per Day (ICD-10-PCS; principal; 2019-04-19)
PROC: 4A023N7 Measurement of Cardiac Sampling and Pressure, Left Heart, Percutaneous Approach (ICD-10-PCS; 2019-04-19)
PROC: B2111ZZ Fluoroscopy of Multiple Coronary Arteries using Low Osmolar Contrast (ICD-10-PCS; 2019-04-19)
PROC: B2151ZZ Fluoroscopy of Left Heart using Low Osmolar Contrast (ICD-10-PCS; 2019-04-19)
DX: I21.A1 Myocardial infarction type 2 (principal); N18.6 End stage renal disease; I12.0 Hypertensive chronic kidney disease with stage 5 chronic kidney disease or end stage renal disease; N25.81 Secondary hyperparathyroidism of renal origin; E11.22 Type 2 diabetes mellitus with diabetic chronic kidney disease; E78.5 Hyperlipidemia, unspecified; I16.0 Hypertensive urgency; Z99.2 Dependence on renal dialysis; I25.2 Old myocardial infarction; Z87.891 Personal history of nicotine dependence
CPT/HCPCS: 36415; 80048; 80061; 80074; 82962; 84484; 85007; 85025; 85027; 85610; 93005; 93010; 93458; G0378; C1894; J1644; J2250; J3010; J7040; J7042; Q9967